=== PATIENT | male | born 1950 | race Caucasian/White ===

== ENCOUNTER 2017-09-01 11:30 | Inpatient (IN) ==
[2017-09-01] MEDS ORDERED: VANCOMYCIN INJ 1,000 MG in SODIUM CHLORIDE 0.9% 250 ML IV STA (12:20)
[2017-09-01] MEDS ORDERED: PIPERACILLIN/TAZOBACTAM 3,375 MG in SODIUM CHLORIDE 0.9% 100 ML IV STA (12:21)
[2017-09-01] MEDS ORDERED: VANCOMYCIN 1,000 MG VIAL ONE (12:25)
[2017-09-01] MEDS ORDERED: PIPERACILLIN/TAZOBACTAM 3,375 MG VIAL IV ONE (12:25)
[2017-09-01 12:34] LABS: Basophils # 0.1 10*3/uL (0.0-0.2); Basophils % 0.4 % (0.0-0.8); Eosinophils # 0.1 10*3/uL (0.0-0.87); Eosinophils % 0.6 % (0.00-10.9); Hematocrit 38.5 VOL% (42.0-52.0); Hemoglobin 13.6 GM/DL (14.0-18.0); Immature Granulocytes % 0.5 %; Immature Granulocytes Absolute 0.07 #; Lymphocytes # 1.7 10*3/uL (1.4-4.0); Lymphocytes % 11.8 % (21.2-54.2); Mean Corpuscular HGB Conc 35.3 GM/DL (32-36); Mean Corpuscular Hemoglobin 31 PG (27-34); Mean Corpuscular Volume 88.1 FL (87-102); Mean Platelet Volume 11.8 FL (9.6-12.0); Monocytes % 6.9 % (1.7-12.7); Neutrophils # 11.4 10*3/uL (1.4-7.4); Neutrophils % 79.8 % (38.7-73.9); Platelet Count 197 T/CUMM (130-400); Red Blood Count 4.37 MC/CUMM (3.8-5.5); Red Cell Distribution Width 12.2 % (9.3-17.3); White Blood Count 14.3 T/CUMM (4-12)
[2017-09-01 12:42] LABS: PT Patient Result 10.9 SECS; Partial Thromboplastin Time 33.1 SECS (0-40)
[2017-09-01 13:14] LABS: Albumin 3.5 G/DL (3.4-5.0); Bilirubin,Total 1.5 MG/DL (0.2-1.0); Calcium 9.2 MG/DL (8.5-10.1); Osmolality,Calculated 275.1 MOS/KG (273-304); Potassium 3.9 MMOL/L (3.5-5.1); Total Protein 7.5 G/DL (6.4-8.3)
[2017-09-01] MEDS ORDERED: METOCLOPRAMIDE 10 MG/2 ML VIAL ONE (13:41)
[2017-09-01] MEDS ORDERED: FAMOTIDINE 20 MG/2 ML VIAL IV ONE (13:42)
[2017-09-01 13:45] LABS: Apearance,Urine CLOUDY (Clear); Bilirubin,Urine Negative (Negative); Blood, Urine Negative (Negative); Glucose,Urine (UA) >=500 mg/dL (Negative); Ketones,Urine 20 mg/dL (Negative); Mucus,Urine Occasional /LPF (Occasional); Nitrite,Urine Negative (Negative); Protein,Urine 30 MG/DL; Urine Color Amber (Yellow); Urine Specific Gravity 1.033 (1.001-1.035); Urine Urobilinogen < 2.0 EU/DL (0.2-1.0); WBC,Urine <1 /HPF (0-6)
[2017-09-01] MEDS ORDERED: FAMOTIDINE 20 MG/2 ML VIAL IV STA (13:57)
[2017-09-01] MEDS ORDERED: METOCLOPRAMIDE 10 MG/2 ML VIAL IV STA (13:58)
[2017-09-01] MEDS ORDERED: LACTATED RINGERS 1,000 ML IV SCH (14:00)
[2017-09-01] MEDS ORDERED: LIDOCAINE 2% TOP JELLY 20 ML VIAL INTRAURETH ONE (14:10)
[2017-09-01] MEDS ORDERED: fentaNYL 100 MCG/2 ML VIAL ONE (15:02)
[2017-09-01] MEDS ORDERED: MIDAZOLAM 2 MG/2 ML VIAL ONE (15:02)
[2017-09-01] MEDS ORDERED: PROPOFOL 200 MG/20 ML VIAL IV ONE (15:03)
[2017-09-01] MEDS ORDERED: KETOROLAC 30 MG/1 ML VIAL ONE (15:04)
[2017-09-01] MEDS ORDERED: LIDOCAINE 1%/EPI INJ 20 ML VIAL ONE (15:14)
[2017-09-01] MEDS ORDERED: BUPIVACAINE 0.25% 50 ML VIAL ONE (15:15)
[2017-09-01] MEDS ORDERED: VANCOMYCIN INJ 1,000 MG in SODIUM CHLORIDE 0.9% 250 ML IV SCH (16:23)
[2017-09-01] MEDS ORDERED: DEXTROSE 50% 25 GM/50 ML VIAL IV PRN ×3 (16:23→17:55)
[2017-09-01] MEDS ORDERED: ACETAMINOPHEN 325 MG TABLET PO PRN (16:23)
[2017-09-01] MEDS ORDERED: ONDANSETRON 4 MG/2 ML VIAL IV PRN (16:23)
[2017-09-01] MEDS ORDERED: GLUCAGON 1 MG VIAL IM PRN ×3 (16:23→17:55)
[2017-09-01] MEDS: GLIMEPIRIDE 4 MG TABLET PO SCH (18:49)
[2017-09-01] MEDS: INSULIN REGULAR 100 UNIT/ML SUBCUT SCH ×2 (18:49→21:47)
[2017-09-01] MEDS: VANCOMYCIN INJ 1,750 MG in SODIUM CHLORIDE 0.9% 500 ML IV SCH (18:55)
[2017-09-01] MEDS: LACTATED RINGERS 1,000 ML IV SCH ×2 (19:09→21:59)
[2017-09-01] MEDS: HYDROmorphone 2 MG/1 ML VIAL IV PRN (19:09)
[2017-09-01] MEDS: DOCUSATE SODIUM 100 MG CAPSULE PO SCH (21:47)
[2017-09-01] MEDS: LISINOPRIL 20 MG TABLET PO SCH (21:47)
[2017-09-01] MEDS: PIPERACILLIN/TAZOBACTAM 3,375 MG in SODIUM CHLORIDE 0.9% 100 ML IV SCH (22:00)
[2017-09-02] MEDS: PIPERACILLIN/TAZOBACTAM 3,375 MG in SODIUM CHLORIDE 0.9% 100 ML IV SCH ×3 (03:48→20:43)
[2017-09-02 07:28] LABS: Basophils # 0.1 10*3/uL (0.0-0.2); Basophils % 0.6 % (0.0-0.8); Eosinophils # 0.4 10*3/uL (0.0-0.87); Eosinophils % 3.6 % (0.00-10.9); Hematocrit 32.4 VOL% (42.0-52.0); Immature Granulocytes % 0.4 %; Immature Granulocytes Absolute 0.04 #; Lymphocytes # 1.4 10*3/uL (1.4-4.0); Lymphocytes % 14.3 % (21.2-54.2); Mean Corpuscular HGB Conc 35.2 GM/DL (32-36); Mean Corpuscular Hemoglobin 32 PG (27-34); Mean Corpuscular Volume 89.8 FL (87-102); Monocytes # 0.8 10*3/uL (0.11-0.8); Monocytes % 7.9 % (1.7-12.7); Neutrophils % 73.2 % (38.7-73.9); Platelet Count 195 T/CUMM (130-400); Red Blood Count 3.61 MC/CUMM (3.8-5.5); Red Cell Distribution Width 12.4 % (9.3-17.3)
[2017-09-02 07:30] LABS: White Blood Count 9.6 T/CUMM (4-12)
[2017-09-02 07:31] LABS: Hemoglobin 11.4 GM/DL (14.0-18.0)
[2017-09-02 07:42] LABS: Calcium 8.6 MG/DL (8.5-10.1); Osmolality,Calculated 273.1 MOS/KG (273-304); Potassium 4.2 MMOL/L (3.5-5.1)
[2017-09-02] MEDS: HYDROmorphone 2 MG/1 ML VIAL IV PRN (08:50)
[2017-09-02] MEDS: VANCOMYCIN INJ 1,750 MG in SODIUM CHLORIDE 0.9% 500 ML IV SCH ×2 (08:54→20:41)
[2017-09-02] MEDS: LISINOPRIL 20 MG TABLET PO SCH ×2 (08:56→21:30)
[2017-09-02] MEDS: GLIMEPIRIDE 4 MG TABLET PO SCH ×2 (08:56→17:57)
[2017-09-02] MEDS: PANTOPRAZOLE 40 MG TABLET PO SCH (08:57)
[2017-09-02] MEDS: DOCUSATE SODIUM 100 MG CAPSULE PO SCH ×2 (08:57→21:50)
[2017-09-02] MEDS: INSULIN REGULAR 100 UNIT/ML SUBCUT SCH ×4 (08:59→23:39)
[2017-09-02] MEDS: TERBINAFINE 250 MG TABLET PO SCH (09:08)
[2017-09-02] MEDS: JARDIANCE 25 MG PO SCH (12:00)
[2017-09-02] MEDS: LACTATED RINGERS 1,000 ML IV SCH ×2 (19:30→19:31)
[2017-09-03] MEDS: PIPERACILLIN/TAZOBACTAM 3,375 MG in SODIUM CHLORIDE 0.9% 100 ML IV SCH ×2 (04:37→12:33)
[2017-09-03] MEDS: INSULIN REGULAR 100 UNIT/ML SUBCUT SCH ×4 (08:40→20:45)
[2017-09-03] MEDS: PANTOPRAZOLE 40 MG TABLET PO SCH (09:37)
[2017-09-03] MEDS: LISINOPRIL 20 MG TABLET PO SCH ×2 (09:37→20:38)
[2017-09-03] MEDS: DOCUSATE SODIUM 100 MG CAPSULE PO SCH ×2 (09:37→20:38)
[2017-09-03] MEDS: POLYETHYLENE GLYCOL POWDER 17 GM PACK PO SCH (09:37)
[2017-09-03] MEDS: JARDIANCE 25 MG PO SCH (09:37)
[2017-09-03] MEDS: GLIMEPIRIDE 4 MG TABLET PO SCH ×2 (09:37→16:35)
[2017-09-03] MEDS: TERBINAFINE 250 MG TABLET PO SCH (09:37)
[2017-09-03] MEDS: VANCOMYCIN INJ 1,750 MG in SODIUM CHLORIDE 0.9% 500 ML IV SCH (09:38)
[2017-09-03] MEDS: CIPROFLOXACIN INJ 400 MG in PREMIX 1 EACH IV SCH (19:34)
[2017-09-04] MEDS: CIPROFLOXACIN INJ 400 MG in PREMIX 1 EACH IV SCH (06:22)
[2017-09-04] MEDS: INSULIN REGULAR 100 UNIT/ML SUBCUT SCH ×3 (08:57→16:57)
[2017-09-04] MEDS: LISINOPRIL 20 MG TABLET PO SCH (08:57)
[2017-09-04] MEDS: GLIMEPIRIDE 4 MG TABLET PO SCH ×2 (08:57→17:09)
[2017-09-04] MEDS: TERBINAFINE 250 MG TABLET PO SCH (08:57)
[2017-09-04] MEDS: JARDIANCE 25 MG PO SCH (08:58)
[2017-09-04] MEDS: DOCUSATE SODIUM 100 MG CAPSULE PO SCH (08:58)
[2017-09-04] MEDS: PANTOPRAZOLE 40 MG TABLET PO SCH (08:58)
[2017-09-04] MEDS: POLYETHYLENE GLYCOL POWDER 17 GM PACK PO SCH (09:00)
[2017-09-04 11:12] VITALS: BP 135/77
== END 2017-09-04 17:30 | disposition home or self-care (01) | DRG 345 ==
LOC: N.ED 11:30 → N.EDINP 12:20 → N.3E 16:10
PROVIDERS: ADMIT Surgery; ATTEND Surgery

== ENCOUNTER 2017-12-18 17:14 | Observation (INO) ==
[~2017-12-18 17:14] MED LIST: ACETAMINOPHEN 325 MG TABLET PO PRN; DEXTROSE 50% 25 GM/50 ML VIAL IV PRN; GLUCAGON 1 MG VIAL IM PRN; MORPHINE 2 MG/1 ML SYRINGE IV PRN; ONDANSETRON 4 MG/2 ML VIAL IV PRN
[2017-12-18] MEDS: INSULIN REGULAR 100 UNIT/ML SUBCUT SCH ×2 (18:29→21:51)
[2017-12-18 19:28] LABS: Basophils # 0.1 10*3/uL (0.0-0.2); Basophils % 0.3 % (0.0-0.8); Eosinophils % 0.2 % (0.00-10.9); Hematocrit 41.1 VOL% (42.0-52.0); Hemoglobin 14.6 GM/DL (14.0-18.0); Immature Granulocytes % 0.6 %; Immature Granulocytes Absolute 0.08 #; Lymphocytes # 2.6 10*3/uL (1.4-4.0); Lymphocytes % 17.8 % (21.2-54.2); Mean Corpuscular HGB Conc 35.5 GM/DL (32-36); Mean Corpuscular Hemoglobin 31 PG (27-34); Mean Corpuscular Volume 86.7 FL (87-102); Monocytes # 0.9 10*3/uL (0.11-0.8); Monocytes % 6.2 % (1.7-12.7); Neutrophils # 10.8 10*3/uL (1.4-7.4); Neutrophils % 74.9 % (38.7-73.9); Platelet Count 191 T/CUMM (130-400); Red Blood Count 4.74 MC/CUMM (3.8-5.5); Red Cell Distribution Width 12.8 % (9.3-17.3); White Blood Count 14.5 T/CUMM (4-12)
[2017-12-18 19:32] LABS: Albumin 3.6 G/DL (3.4-5.0); Bilirubin,Total 1.6 MG/DL (0.2-1.0); Calcium 9.2 MG/DL (8.5-10.1); Total Protein 7.2 G/DL (6.4-8.3)
[2017-12-18] MEDS: SODIUM CHLORIDE 0.9% 1,000 ML IV SCH (19:50)
[2017-12-18] MEDS: PIPERACILLIN/TAZOBACTAM 3,375 MG in SODIUM CHLORIDE 0.9% 100 ML IV SCH (21:48)
[2017-12-18] MEDS: DEXTROSE 5% NACL 0.45% 1,000 ML IV SCH (22:43)
[2017-12-18 23:49] LABS: Apearance,Urine CLEAR (Clear); Bilirubin,Urine Negative (Negative); Blood, Urine Negative (Negative); Glucose,Urine (UA) >=500 mg/dL (Negative); Ketones,Urine 20 mg/dL (Negative); Nitrite,Urine Negative (Negative); Protein,Urine Negative; RBC,Urine <1 /HPF (0-4); Urine Color Yellow (Yellow); Urine Specific Gravity 1.032 (1.001-1.035); Urine Urobilinogen < 2.0 EU/DL (0.2-1.0)
[2017-12-19] MEDS: VANCOMYCIN INJ 2,000 MG in SODIUM CHLORIDE 0.9% 500 ML IV SCH ×2 (01:47→11:40)
[2017-12-19] MEDS: SODIUM CHLORIDE 0.9% 1,000 ML IV SCH ×2 (01:49→10:50)
[2017-12-19] MEDS: DEXTROSE 5% NACL 0.45% 1,000 ML IV SCH ×3 (03:13→19:45)
[2017-12-19] MEDS: PIPERACILLIN/TAZOBACTAM 3,375 MG in SODIUM CHLORIDE 0.9% 100 ML IV SCH ×3 (06:10→21:23)
[2017-12-19] MEDS ORDERED: BUPIVACAINE MPF 0.25% /EPI 30 ML VIAL ONE (06:18)
[2017-12-19] MEDS ORDERED: LIDOCAINE 2% TOP JELLY 5 ML TUBE TOP ONE (06:18)
[2017-12-19] MEDS: PANTOPRAZOLE 40 MG TABLET PO SCH (08:18)
[2017-12-19] MEDS: INSULIN REGULAR 100 UNIT/ML SUBCUT SCH ×4 (08:18→20:41)
[2017-12-19] MEDS ORDERED: PROPOFOL 200 MG/20 ML VIAL IV ONE (08:31)
[2017-12-19] MEDS ORDERED: fentaNYL 100 MCG/2 ML VIAL ONE (08:32)
[2017-12-19] MEDS ORDERED: ACETAMINOPHEN 1,000 MG/100 ML VIAL IV ONE (08:32)
[2017-12-19] MEDS ORDERED: KETOROLAC 30 MG/1 ML VIAL ONE (08:32)
[2017-12-19] MEDS ORDERED: ONDANSETRON 4 MG/2 ML VIAL ONE (08:32)
[2017-12-19] MEDS ORDERED: SEVOFLURANE 1 UNIT/15 MINUTE INH ONE (08:32)
[2017-12-19] MEDS ORDERED: MIDAZOLAM 2 MG/2 ML VIAL ONE (08:32)
[2017-12-19] MEDS ORDERED: hydroCHLOROthiazide 25 MG TABLET PO PRN (09:23)
[2017-12-19] MEDS: LISINOPRIL 20 MG TABLET PO SCH ×2 (10:49→20:41)
[2017-12-19 11:15] LABS: Calcium 8.4 MG/DL (8.5-10.1); Osmolality,Calculated 281.8 MOS/KG (273-304); Potassium 3.8 MMOL/L (3.5-5.1)
[2017-12-19] MEDS ORDERED: MELOXICAM 7.5 MG TABLET PO SCH (17:00)
[2017-12-19] MEDS: GLIMEPIRIDE 4 MG TABLET PO SCH (17:15)
[2017-12-20] MEDS: VANCOMYCIN INJ 2,000 MG in SODIUM CHLORIDE 0.9% 500 ML IV SCH (01:46)
[2017-12-20] MEDS: DEXTROSE 5% NACL 0.45% 1,000 ML IV SCH ×2 (01:46→11:15)
[2017-12-20] MEDS: SODIUM CHLORIDE 0.9% 1,000 ML IV SCH (01:46)
[2017-12-20 04:03] LABS: Basophils # 0.1 10*3/uL (0.0-0.2); Basophils % 0.5 % (0.0-0.8); Eosinophils # 0.3 10*3/uL (0.0-0.87); Eosinophils % 3.2 % (0.00-10.9); Hematocrit 35.2 VOL% (42.0-52.0); Hemoglobin 11.9 GM/DL (14.0-18.0); Immature Granulocytes % 0.5 %; Immature Granulocytes Absolute 0.05 #; Lymphocytes % 19.5 % (21.2-54.2); Mean Corpuscular HGB Conc 33.8 GM/DL (32-36); Mean Corpuscular Hemoglobin 31 PG (27-34); Mean Corpuscular Volume 90.5 FL (87-102); Mean Platelet Volume 12.4 FL (9.6-12.0); Monocytes # 0.7 10*3/uL (0.11-0.8); Monocytes % 6.4 % (1.7-12.7); Neutrophils # 7.1 10*3/uL (1.4-7.4); Neutrophils % 69.9 % (38.7-73.9); Platelet Count 166 T/CUMM (130-400); Red Blood Count 3.89 MC/CUMM (3.8-5.5); White Blood Count 10.2 T/CUMM (4-12)
[2017-12-20 04:31] LABS: Osmolality,Calculated 281.8 MOS/KG (273-304); Potassium 4.1 MMOL/L (3.5-5.1)
[2017-12-20] MEDS: PIPERACILLIN/TAZOBACTAM 3,375 MG in SODIUM CHLORIDE 0.9% 100 ML IV SCH (06:16)
[2017-12-20] MEDS: INSULIN REGULAR 100 UNIT/ML SUBCUT SCH (08:23)
[2017-12-20] MEDS: LISINOPRIL 20 MG TABLET PO SCH (08:24)
[2017-12-20] MEDS: GLIMEPIRIDE 4 MG TABLET PO SCH (08:24)
[2017-12-20] MEDS: PANTOPRAZOLE 40 MG TABLET PO SCH (08:24)
[2017-12-20] MEDS ORDERED: ENOXAPARIN 40 MG/0.4 ML SYRINGE SUBCUT SCH (09:00)
[2017-12-20] MEDS ORDERED: SODIUM HYPOCHLORITE 0.25% IRRIG 473 ML BOTTLE TOP SCH (12:30)
[2017-12-20 16:45] VITALS: BP 175/80
== END 2017-12-20 14:00 | disposition home or self-care (01) ==
LOC: INTOOBSV 17:14 → N.3E 17:14 → EDSTATUS 12-19 08:30
PROVIDERS: ADMIT Surgery; ATTEND Surgery